=== PATIENT | female | born 2000 | race Caucasian/White ===

== ENCOUNTER 2023-01-17 20:05 | Emergency (ER) | payer BC ==
[2023-01-17] MEDS ORDERED: Boostrix 0.5 ML (Tdap) VIAL (>/=7 yrs of age) ONE (21:18)
== END 2023-01-17 21:44 | disposition home or self-care (01) ==
LOC: CSHERS 20:05
DX: S30.1XXA Contusion of abdominal wall, initial encounter (principal); S60.221A Contusion of right hand, initial encounter; S80.01XA Contusion of right knee, initial encounter; S80.11XA Contusion of right lower leg, initial encounter; F17.290 Nicotine dependence, other tobacco product, uncomplicated; Z23 Encounter for immunization; V40.9XXA Unspecified car occupant injured in collision with pedestrian or animal in traffic accident, initial encounter
CPT/HCPCS: 90471; 90715